=== PATIENT | female | born 1950 | race Caucasian/White ===

== ENCOUNTER 2017-03-23 11:20 | Day surgery (SDC) | payer OTHER ==
[~2017-03-23] VITALS: Ht 162.6 cm; Wt 93.4 kg
[~2017-03-23 11:20] MED LIST: ALDACTAZIDE 251 EACH PO; ANTIVERT25 MG PO; APRESOLINE25 MG PO; ATORVASTATIN CA20 MG PO; BREO ELLIPTA 21 EACH IH; CALCIUM CITRAT200 MG PO; CALTRATE 600 +1 EAC1 PO; CRANBERRY500 M2 PO; DULERA 200 MCG/13 GM IH; FENOFIBRATE160 M1 PO; FLONASE16 G1 BOTH NARES; LO-DOSE ASPIRIN81 M2 PO; LOSARTAN POTAS100 MG PO; MACRODANTIN100 MG PO; MACRODANTIN25 MG PO; MIRALAX255 GM PO; MONTELUKAST SOD10 MG PO; MYRBETRIQ50 MG PO; OMEPRAZOLE40 M1 PO; PREMARIN VAGI42.5 GM VG; SINGULAIR10 MG PO; SPIRIVA RESPIMAT4 GM IH; TRAMADOL HCL50 MG PO; VENLAFAXINE HCL75 M1 PO; VENTOLIN HFA18 GM IH; ZANTAC300 MG PO; ZYRTEC10 M3 PO
== END 2017-03-23 13:00 | disposition home or self-care (01) ==
LOC: PAIN 11:20 → SDC 11:45 → PAIN 11:45
DX: M47.26 Other spondylosis with radiculopathy, lumbar region (principal); M51.26 Other intervertebral disc displacement, lumbar region; F41.9 Anxiety disorder, unspecified; M19.90 Unspecified osteoarthritis, unspecified site; I10 Essential (primary) hypertension; E78.5 Hyperlipidemia, unspecified; K21.9 Gastro-esophageal reflux disease without esophagitis; G47.30 Sleep apnea, unspecified; F32.9 Major depressive disorder, single episode, unspecified; E66.9 Obesity, unspecified; Z68.35 Body mass index [BMI] 35.0-35.9, adult; R73.09 Other abnormal glucose; Z79.82 Long term (current) use of aspirin; Z88.1 Allergy status to other antibiotic agents; Z91.040 Latex allergy status; Z91.041 Radiographic dye allergy status; Z91.018 Allergy to other foods; Z88.8 Allergy status to other drugs, medicaments and biological substances
CPT/HCPCS: J1030; J2250; J3010; S0020

== ENCOUNTER 2017-04-29 08:12 | Day surgery (SDC) | payer OTHER ==
[~2017-04-29] VITALS: Ht 162.6 cm; Wt 93.0 kg
== END 2017-04-29 10:25 | disposition home or self-care (01) ==
LOC: PAIN 08:12 → SDC 08:30 → PAIN 10:25
DX: M47.26 Other spondylosis with radiculopathy, lumbar region (principal); M51.16 Intervertebral disc disorders with radiculopathy, lumbar region; I10 Essential (primary) hypertension; G47.33 Obstructive sleep apnea (adult) (pediatric); R73.09 Other abnormal glucose; K21.9 Gastro-esophageal reflux disease without esophagitis; J45.909 Unspecified asthma, uncomplicated; E66.9 Obesity, unspecified; Z68.35 Body mass index [BMI] 35.0-35.9, adult; F41.9 Anxiety disorder, unspecified; Z79.82 Long term (current) use of aspirin
CPT/HCPCS: J1030; J2250; J3010; S0020

== ENCOUNTER 2017-05-06 08:01 | Day surgery (SDC) | payer OTHER ==
[~2017-05-06] VITALS: Ht 162.6 cm; Wt 93.0 kg
[~2017-05-06 08:01] MED LIST changes: +[UNRECOGNIZED DRUG - REMARK]
== END 2017-05-06 10:09 | disposition home or self-care (01) ==
LOC: PAIN 08:01 → SDC 08:30 → PAIN 08:30
DX: M47.26 Other spondylosis with radiculopathy, lumbar region (principal); M51.16 Intervertebral disc disorders with radiculopathy, lumbar region; I10 Essential (primary) hypertension; G47.33 Obstructive sleep apnea (adult) (pediatric); R73.09 Other abnormal glucose; J45.909 Unspecified asthma, uncomplicated; E78.5 Hyperlipidemia, unspecified; K21.9 Gastro-esophageal reflux disease without esophagitis; E66.9 Obesity, unspecified; Z68.35 Body mass index [BMI] 35.0-35.9, adult; Z79.891 Long term (current) use of opiate analgesic; Z79.82 Long term (current) use of aspirin
CPT/HCPCS: J1030; J2250; J3010; S0020

== ENCOUNTER → 2017-06-08 | Outpatient (CLI) | payer OTHER | END | disposition home or self-care (01) | DX: M17.11 Unilateral primary osteoarthritis, right knee (principal); R26.2 Difficulty in walking, not elsewhere classified; M25.561 Pain in right knee; M25.661 Stiffness of right knee, not elsewhere classified; M62.81 Muscle weakness (generalized); Z74.1 Need for assistance with personal care | CPT/HCPCS: 97110 GP; 97150 GO; 97161 GP; 97165 GO; G8978 GP; G8979 GP; G8980 GP; G8987 GO; G8988 GO; G8989 GO ==

== ENCOUNTER → 2017-07-12 | Day surgery (SDC) | payer OTHER ==
[~2017-07-12] VITALS: Ht 162.6 cm; Wt 93.0 kg
[2017-07-12 12:25] VITALS: BP 171/74
== END | disposition home or self-care (01) ==
LOC: CANRESERV 07-11 21:30 → ENRESERV 07-11 21:30 → EDSTATUS 09:19 → SDC 09:20 → 2SOUTH 10:04 → SDC 11:51
PROC: 0SJCXZZ Inspection of Right Knee Joint, External Approach (ICD-10-PCS; principal; 2017-07-12)
DX: M17.11 Unilateral primary osteoarthritis, right knee (principal); Z53.09 Procedure and treatment not carried out because of other contraindication; T25.031A Burn of unspecified degree of right toe(s) (nail), initial encounter
CPT/HCPCS: J3370; J7050

== ENCOUNTER 2017-08-22 21:31 | Inpatient (IN) | payer OTHER ==
[~2017-08-22] VITALS: Ht 162.6 cm; Wt 94.2 kg
[~2017-08-22 21:31] MED LIST changes: +FLEXERIL5 MG PO
[2017-08-23 08:10] LABS: ADD MIUA? YES; BILIRUBIN NEGATIVE; BLOOD NEGATIVE; COLOR YELLOW ((YELLOW)); GLUCOSE (STRIP) NEGATIVE; KETONES NEGATIVE; LEUKOCYTES SMALL; NITRITE NEGATIVE; PROTEIN (STRIP) NEGATIVE; SPECIFIC GRAVITY 1.003 (1.000-1.030); UROBILINOGEN 0.2 MG/DL (0.2-1.0)
[2017-08-23 08:14] LABS: BACTERIA RARE /HPF; EPITHELIAL CELLS RARE /HPF; MUCUS TRACE /LPF; RED BLOOD CELLS 0-5 /HPF (0-5); WHITE BLOOD CELLS 20-30 /HPF (0-5)
[2017-08-23 08:43] LABS: HEMATOCRIT 37.6 % (36.0-46.0); MCH 30.5 PG (29.0-34.0); MCHC 33.8 G/DL (30.0-36.0); MCV 90.4 FL (83-99); MEAN PLAT.VOLUME 8.9 uM^3 (9.5-12.4); PLATELET COUNT 394 K/uL (156-360); RBC DIS.WIDTH-CV 13.2 % (11.8-14.6); RBC DIS.WIDTH-SD 43.6 % (39-53); RED BLOOD COUNT 4.16 M/uL (3.80-5.20); WHITE BLOOD COUNT 12.7 K/uL (4.1-10.2)
[2017-08-23 09:30] VITALS: BP 145/72
[2017-08-23 12:38] LABS: HEMATOCRIT 36.1 % (36.0-46.0); MCH 30.1 PG (29.0-34.0); MCV 91.4 FL (83-99); MEAN PLAT.VOLUME 8.8 uM^3 (9.5-12.4); PLATELET COUNT 368 K/uL (156-360); RBC DIS.WIDTH-CV 13.2 % (11.8-14.6); RBC DIS.WIDTH-SD 43.7 % (39-53); RED BLOOD COUNT 3.95 M/uL (3.80-5.20); WHITE BLOOD COUNT 13.1 K/uL (4.1-10.2)
[2017-08-23 13:48] VITALS: BP 126/58
[2017-08-23 15:10] VITALS: BP 142/66
[2017-08-23 20:24] VITALS: BP 138/75
[2017-08-23 23:53] VITALS: BP 160/75
[2017-08-24 04:20] VITALS: BP 133/60
[2017-08-24 06:03] LABS: HEMATOCRIT 35.8 % (36.0-46.0); MCV 90.2 FL (83-99)
[2017-08-24 06:28] LABS: ANION GAP 9 MEQ/L (2-14); CHLORIDE 96 MEQ/L (99-109); GFR ESTIMATE (CALCULATED) > 59 mL/min/; GLUCOSE 114 mg/dL (70-99); POTASSIUM 3.5 MEQ/L (3.7-5.4); SAMPLE HEMOLYSIS CHECK 0; SAMPLE ICTERIC CHECK 0; SAMPLE LIPEMIA CHECK 0; SODIUM 132 MEQ/L (136-147); UREA NITROGEN (BUN) 8 mg/dL (9-23)
[2017-08-24 08:11] VITALS: BP 138/58
[2017-08-24 12:04] VITALS: BP 144/63
[2017-08-24 15:49] VITALS: BP 132/56
[2017-08-24 20:21] VITALS: BP 143/66
[2017-08-25 00:12] VITALS: BP 134/63
[2017-08-25 04:00] VITALS: BP 127/62
[2017-08-25 06:44] LABS: HEMATOCRIT 32.3 % (36.0-46.0); MCV 89.5 FL (83-99)
[2017-08-25 07:13] LABS: ALKALINE PHOSPHATASE 68 IU/L (3-129); ANION GAP 9 MEQ/L (2-14); CHLORIDE 93 MEQ/L (99-109); GFR ESTIMATE (CALCULATED) > 59 mL/min/; GLUCOSE 100 mg/dL (70-99); POTASSIUM 3.3 MEQ/L (3.7-5.4); SAMPLE HEMOLYSIS CHECK 0; SAMPLE ICTERIC CHECK 0; SAMPLE LIPEMIA CHECK 0; SODIUM 129 MEQ/L (136-147); UREA NITROGEN (BUN) 7 mg/dL (9-23)
[2017-08-25 07:22] LABS: TOTAL BILIRUBIN 0.6 MG/DL (0.0-1.0)
[2017-08-25 08:00] VITALS: BP 139/62
[2017-08-25] MEDS ORDERED: ENDOCET 5-3251 EACH PO (09:52)
[2017-08-25] MEDS ORDERED: LOVENOX40 MG/0.4 SC (09:52)
[2017-08-25 12:23] VITALS: BP 138/65
== END 2017-08-25 15:55 | DRG 470 ==
LOC: ENRESERV 21:31 → 2SOUTH 08-23 06:38 → 3WEST 08-23 13:43 → 2SOUTH 08-23 15:35 → 3WEST 08-25 15:55
PROVIDERS: Nurse Practitioner Family; Orthopaedic Surgery
PROC: 0SRC0J9 Replacement of Right Knee Joint with Synthetic Substitute, Cemented, Open Approach (ICD-10-PCS; principal; 2017-08-23)
PROC: 5A09357 Assistance with Respiratory Ventilation, Less than 24 Consecutive Hours, Continuous Positive Airway Pressure (ICD-10-PCS; 2017-08-24)
DX: M17.11 Unilateral primary osteoarthritis, right knee (principal); G47.30 Sleep apnea, unspecified; J45.909 Unspecified asthma, uncomplicated; I10 Essential (primary) hypertension; G43.909 Migraine, unspecified, not intractable, without status migrainosus; M81.0 Age-related osteoporosis without current pathological fracture; K21.9 Gastro-esophageal reflux disease without esophagitis; F32.9 Major depressive disorder, single episode, unspecified; Z79.82 Long term (current) use of aspirin; Z91.041 Radiographic dye allergy status; Z91.040 Latex allergy status; Z88.1 Allergy status to other antibiotic agents; Z87.11 Personal history of peptic ulcer disease
CPT/HCPCS: 73560; 80048; 80053; 81003; 85014; 85018; 85027; 94640; 94640 76; 94799; 99202; C1713; J0690; J1170; J1650; J1885; J2250; J3010; J3370; J7050; Q0175

== ENCOUNTER 2017-10-18 13:50 | Day surgery (SDC) | payer OTHER ==
[~2017-10-18] VITALS: Ht 162.6 cm; Wt 83.5 kg
[~2017-10-18 13:50] MED LIST changes: +ENDOCET 5-3251 EACH PO; +LOVENOX40 MG/0.4 SC
[2017-10-18] MEDS ORDERED: ALDACTAZIDE 251 EACH PO (14:32)
[2017-10-18 15:08] VITALS: BP 130/60
[2017-10-18 18:30] VITALS: BP 137/63
[2017-10-18 19:28] VITALS: BP 120/68
== END 2017-10-18 19:48 | disposition home or self-care (01) ==
LOC: SDC 13:50
PROC: 0SSCXZZ Reposition Right Knee Joint, External Approach (ICD-10-PCS; principal; 2017-10-18)
DX: M24.661 Ankylosis, right knee (principal); I10 Essential (primary) hypertension; J45.909 Unspecified asthma, uncomplicated; K21.9 Gastro-esophageal reflux disease without esophagitis; Z96.651 Presence of right artificial knee joint; Z79.82 Long term (current) use of aspirin
CPT/HCPCS: 73560; 76000; 87641; J1170; J2250; J3010; J7050

== ENCOUNTER 2018-01-10 13:04 | Day surgery (SDC) | payer OTHER ==
[~2018-01-10] VITALS: Ht 162.6 cm; Wt 83.5 kg
[~2018-01-10 13:04] MED LIST changes: +ULTRAM50 MG PO
== END 2018-01-10 13:32 | disposition home or self-care (01) ==
LOC: PAIN 13:04 → SDC 13:30 → PAIN 13:30
DX: M54.16 Radiculopathy, lumbar region (principal); M51.26 Other intervertebral disc displacement, lumbar region; M99.83 Other biomechanical lesions of lumbar region; M47.816 Spondylosis without myelopathy or radiculopathy, lumbar region; M19.90 Unspecified osteoarthritis, unspecified site; I10 Essential (primary) hypertension; E78.5 Hyperlipidemia, unspecified; K21.9 Gastro-esophageal reflux disease without esophagitis; Z86.19 Personal history of other infectious and parasitic diseases; G47.33 Obstructive sleep apnea (adult) (pediatric); E66.9 Obesity, unspecified; Z68.31 Body mass index [BMI] 31.0-31.9, adult; Z79.82 Long term (current) use of aspirin; Z91.040 Latex allergy status; Z91.018 Allergy to other foods; Z91.041 Radiographic dye allergy status; Z88.1 Allergy status to other antibiotic agents; Z88.8 Allergy status to other drugs, medicaments and biological substances
CPT/HCPCS: J1100; J2250

== ENCOUNTER 2018-02-15 12:34 | Day surgery (SDC) | payer OTHER ==
[~2018-02-15] VITALS: Ht 162.6 cm; Wt 83.5 kg
[2018-02-15] MEDS ORDERED: ASPIR 8181 M1 PO (12:54)
== END 2018-02-15 14:11 | disposition home or self-care (01) ==
LOC: PAIN 12:34 → SDC 13:00 → PAIN 14:11
PROC: 3E0R3BZ Introduction of Anesthetic Agent into Spinal Canal, Percutaneous Approach (ICD-10-PCS; principal; 2018-02-15)
PROC: 3E0R33Z Introduction of Anti-inflammatory into Spinal Canal, Percutaneous Approach (ICD-10-PCS; principal; 2018-02-15)
DX: M47.816 Spondylosis without myelopathy or radiculopathy, lumbar region (principal); M51.16 Intervertebral disc disorders with radiculopathy, lumbar region; M48.061 Spinal stenosis, lumbar region without neurogenic claudication; K21.9 Gastro-esophageal reflux disease without esophagitis; E78.5 Hyperlipidemia, unspecified; G47.33 Obstructive sleep apnea (adult) (pediatric); Z79.82 Long term (current) use of aspirin
CPT/HCPCS: J1100; J3010

== ENCOUNTER 2018-05-19 09:39 | Day surgery (SDC) | payer OTHER ==
[~2018-05-19] VITALS: Ht 162.6 cm; Wt 84.4 kg
[~2018-05-19 09:39] MED LIST changes: -APRESOLINE25 MG PO; +APRESOLINE50 MG PO; +ASPIR 8181 M1 PO; +WELLBUTRIN XL150 MG PO
== END 2018-05-19 11:25 | disposition home or self-care (01) ==
LOC: PAIN 09:39 → SDC 10:00 → PAIN 10:00
PROC: 3E0R33Z Introduction of Anti-inflammatory into Spinal Canal, Percutaneous Approach (ICD-10-PCS; principal; 2018-05-19)
PROC: 3E0R3BZ Introduction of Anesthetic Agent into Spinal Canal, Percutaneous Approach (ICD-10-PCS; principal; 2018-05-19)
DX: M51.16 Intervertebral disc disorders with radiculopathy, lumbar region (principal); M47.26 Other spondylosis with radiculopathy, lumbar region; M48.061 Spinal stenosis, lumbar region without neurogenic claudication; J45.909 Unspecified asthma, uncomplicated; E78.5 Hyperlipidemia, unspecified; I10 Essential (primary) hypertension; K21.9 Gastro-esophageal reflux disease without esophagitis; R73.03 Prediabetes; Z79.891 Long term (current) use of opiate analgesic; Z88.8 Allergy status to other drugs, medicaments and biological substances; Z88.1 Allergy status to other antibiotic agents; Z91.041 Radiographic dye allergy status; Z91.040 Latex allergy status
CPT/HCPCS: J1100